=== PATIENT | male | born 1970 | race American Indian/Alaskan Native ===

== ENCOUNTER 2017-06-05 14:48 | Inpatient (IN) | payer OTHER ==
[2017-06-05] MEDS ORDERED: TYLENOL PO ONE (15:11)
--- NOTE | 2017-06-05 15:12 | Emergency Department Report ---
HPI - General Chief Complaint: Seizure Time Seen by Provider: 06/05/17 15:08 - HPI HPI: This is a 47-year-old Afro-Stateless male who presents the emergency department by EMS from home after he had a witnessed seizure. The patient doesn't history of epilepsy and his last seizure prior to today was about 6 or 7 months ago. The patient usually takes 1500 mg of Keppra twice a day and 250 mg of Depakote in the morning and 500 mg at night. However he has been out of medications for the past few days. He does not have a primary care physician. No recent travel or sick contacts at home. Currently he says he has a mild headache and just feels fatigued. ED Past Medical Hx - Past Medical History Hx Seizures: Yes - Social History Smoking Status: Never Smoker Substance Use Type: None - Medications Home Medications: Home Medications Medication Instructions Recorded Confirmed Last Taken Type Depakote Dr 50 mg PO QHS 06/05/17 06/05/[address] [DepaKOTE DR] 250 mg PO QAM 06/05/17 06/05/17 Unknown History levETIRAcetam [Keppra TAB] 1,500 mg PO BID 06/05/17 06/05/17 Unknown History ED Review of Systems ROS: Stated complaint: SEIZURE Other details as noted in HPI Comment: All other systems reviewed and negative Constitutional: denies: chills, diaphoresis Eyes: denies: eye pain, eye discharge, vision change ENT: denies: ear pain, throat pain Respiratory: denies: cough, shortness of breath, wheezing Cardiovascular: denies: chest pain, palpitations Gastrointestinal: denies: abdominal pain, nausea, diarrhea Genitourinary: denies: urgency, dysuria Musculoskeletal: denies: back pain, joint swelling, arthralgia Skin: denies: rash, lesions Neurological: headache. denies: numbness, paresthesias Physical Exam - Physical Exam Vital Signs: Vital Signs 06/05/17 15:01 Temperature 100.2 F H Pulse Rate 101 H Respiratory 16 Rate Blood Pressure 115/72 O2 Sat by Pulse 94 Oximetry Physical Exam: GENERAL: The patient is well-developed well-nourished. HEENT: Normocephalic. Atraumatic. Extraocular motions are intact. Patient has moist mucous membranes. Pupils equal reactive to light bilaterally. No nystagmus NECK: Supple. Trachea is mid line. CHEST/LUNGS: Clear to auscultation. There is no respiratory distress noted. HEART/CARDIOVASCULAR: Regular. There is no tachycardia. There is no gallop rub or murmur. ABDOMEN: Abdomen is soft, nontender. Patient has normal bowel sounds. There is no abdominal distention. SKIN: Skin is warm and dry. NEURO: The patient is fatigued but is awake, alert, and oriented. The patient is cooperative. The patient has no focal neurologic deficits. The patient has normal speech. MUSCULOSKELETAL: There is no tenderness or deformity. There is no limitation range of motion. There is no evidence of acute injury. ED Course Vital Signs 06/05/17 15:01 Temperature 100.2 F H Pulse Rate 101 H Respiratory 16 Rate Blood Pressure 115/72 O2 Sat by Pulse 94 Oximetry ED Medical Decision Making - Lab Data Result diagrams: 06/05/17 15:15 06/05/17 15:15 - EKG Data -: EKG Interpreted by Fl EKG shows normal: sinus rhythm, axis (left axis deviation), intervals, QRS complexes (LVH) Rate: normal - EKG Data When compared to previous EKG there are: previous EKG unavailable Interpretation: LVH - Radiology Data Radiology results: report reviewed CT of the head does not show any acute process including no hemorrhage, mass, shift, diffuse edema or skull fracture. - Medical Decision Making 47-year-old male presents after having a seizure at home. However the patient then had another seizure here. I was able to talk to him in between and there was no obvious focal, motor or sensory deficits and the patient was slightly postictal but was oriented at that time. Now the patient is once again postictal and it appears to be prolonged. For this reason a CT of the head was done that does not show any bleed, shift, mass or any acute process. EKG shows LVH but no ST elevation ID, or dysrhythmia. Patient has been noncompliant with his seizure medications for the past few days after he ran out of his meds. Subtherapeutic Depakote level. The patient had the second seizure just prior to being able to get the oral Depakote medication but he was covered with 1 g of Keppra. Since he has had repeated seizures and remains postictal he will be admitted to the hospital for further evaluation and treatment is been accepted for admission by the hospitalist, Dr. Pulliam. - Differential Diagnosis epilepsy, sepsis, hypoglycemia Critical Care Time: No Critical care attestation.: If time is entered above; I have spent that time in minutes in the direct care of this critically ill patient, excluding procedure time. ED Disposition Clinical Impression: Recurrent seizures, Seizure secondary to subtherapeutic anticonvulsant medication Fever Qualifiers: Fever type: unspecified Qualified Code(s): R50.9 - Fever, unspecified Epilepsy Qualifiers: Epilepsy type: unspecified Intractability: not intractable Disposition: OP ADMIT IP TO THIS HOSP Is pt being admited?: Yes Condition: Fair Time of Disposition: 19:49
[2017-06-05 15:32] LABS: Hematocrit 44.1 % (35.5-45.6); Mean Corpuscular HGB Conc 32 % (32-34); Mean Corpuscular Hemoglobin 26 pg (28-32); Mean Corpuscular Volume 83 fl (84-94); Platelet Count 130 K/mm3 (140-440); Red Blood Count 5.31 M/mm3 (3.65-5.03); Red Cell Distribution Width 13.5 % (13.2-15.2); White Blood Count 5.9 K/mm3 (4.5-11.0)
[2017-06-05 15:48] LABS: Anion Gap 18 mmol/L; Blood Urea Nitrogen 14 mg/dL (9-20); Calcium 8.7 mg/dL (8.4-10.2); Carbon Dioxide 25 mmol/L (22-30); Glucose 93 mg/dL (75-100); Potassium 4.3 mmol/L (3.6-5.0); Sodium 137 mmol/L (137-145)
[2017-06-05] MEDS ORDERED: KEPPRA 1,000 MG/NS 0.75% 100ML 1,000 MG/100 ML BAG IV ONE (16:46)
[2017-06-05] MEDS ORDERED: ATIVAN ONE (16:57)
--- NOTE | 2017-06-05 18:19 | Cat Scan Report ---
FINAL REPORT PROCEDURE: CT HEAD/BRAIN WO CON TECHNIQUE: Computerized tomography of the head was performed without contrast material. HISTORY: Seizures COMPARISON: No prior studies are available for comparison. FINDINGS: No CT evidence of intracranial mass, hemorrhage, acute territorial infarction, or hydrocephalus. The intracranial arteries are symmetric in density. No acute fracture is seen. The visualized paranasal sinuses and mastoids are aerated. IMPRESSION: No CT evidence of acute intracranial abnormality
[2017-06-05] MEDS ORDERED: TORADOL IV ONE (19:49)
--- NOTE | 2017-06-05 21:22 | History and Physical Report ---
History of Present Illness Date of examination: 06/05/17 Date of admission: 06/05/17 Chief complaint: Seizures-generalized at home. History of present illness: HPI: This is a 47-year-old Afro-Azerbaijani male who presents the emergency department by EMS from home after he had a witnessed seizure. Patient does have history of epilepsy and his last seizure prior to today was about 6 or 7 months ago. The patient usually takes 1500 mg of Keppra twice a day and 250 mg of Depakote in the morning and 500 mg at night. However he has been out of medications for the past few days. He does not have a primary care physician. No recent travel or sick contacts at home. Currently he says he has a mild headache and just feels fatigued.Had another seizure in ER and patient is postictal. Past Medical History Hx Seizures: Yes Social History Smoking Status: Never Smoker Substance Use Type: None Surg HX no Fam HX HTN - Medications Home Medications: Home Medications Medication Instructions Recorded Confirmed Last Taken Type Depakote Dr 500 mg PO QHS 06/05/17 06/05/[address] [DepaKOTE DR] 250 mg PO QAM 06/05/17 06/05/17 Unknown History levETIRAcetam [Keppra TAB] 1,500 mg PO BID 06/05/17 06/05/17 Unknown History ROS: Stated complaint: SEIZURE Other details as noted in HPI Comment: All other systems reviewed and negative Constitutional: denies: chills, diaphoresis Eyes: denies: eye pain, eye discharge, vision change ENT: denies: ear pain, throat pain Respiratory: denies: cough, shortness of breath, wheezing Cardiovascular: denies: chest pain, palpitations Gastrointestinal: denies: abdominal pain, nausea, diarrhea Genitourinary: denies: urgency, dysuria Musculoskeletal: denies: back pain, joint swelling, arthralgia Skin: denies: rash, lesions Neurological: headache. denies: numbness, paresthesias Medications and Allergies Allergies Allergy/AdvReac Type Severity Reaction Status Date / Time No Known Allergies Allergy Unverified 06/05/17 15:04 Home Medications Medication Instructions Recorded Confirmed Last Taken Type Depakote Dr 50 mg PO QHS 06/05/17 06/05/[address] [DepaKOTE DR] 250 mg PO QAM 06/05/17 06/05/17 Unknown History levETIRAcetam [Keppra TAB] 1,500 mg PO BID 06/05/17 06/05/17 Unknown History Exam - Physical Exam Narrative exam: Patient is lethargic and in no distress otherwise - Constitutional Vitals: Temp Pulse Resp BP Pulse Ox 100.2 F H 94 H 16 113/67 98 06/05/17 15:01 06/05/17 19:05 06/05/17 19:05 06/05/17 19:05 06/05/17 19:05 General appearance: Present: no acute distress, well-nourished - EENT Eyes: Present: PERRL ENT: hearing intact, clear oral mucosa - Neck Neck: Present: supple, normal ROM - Respiratory Respiratory effort: normal Respiratory: bilateral: CTA - Cardiovascular Heart rate: 94 Rhythm: regular Heart Sounds: Present: S1 & S2. Absent: rub, click - Extremities Extremities: pulses intact, pulses symmetrical, No edema Peripheral Pulses: within normal limits - Abdominal General gastrointestinal: Present: soft, non-tender, non-distended, normal bowel sounds Male genitourinary: Present: normal - Rectal Rectal Exam: deferred - Integumentary Integumentary: Present: clear, warm, dry - Musculoskeletal Musculoskeletal: gait normal, strength equal bilaterally - Psychiatric Psychiatric: appropriate mood/affect, intact judgment & insight - Neurologic Neurologic: CNII-XII intact, moves all extremities - Additional findings Additional findings: Lethargic and altered sensorium - Allied Health Allied health notes reviewed: nursing, case management Results - Labs CBC & Chem 7: 06/05/17 15:15 06/05/17 15:15 Labs: Laboratory Last Values WBC 5.9 K/mm3 (4.5-11.0) 06/05/17 15:15 RBC 5.31 M/mm3 (3.65-5.03) H 06/05/17 15:15 Hgb 14.0 gm/dl (11.8-15.2) 06/05/17 15:15 Hct 44.1 % (35.5-45.6) 06/05/17 15:15 MCV 83 fl (84-94) L 06/05/17 15:15 MCH 26 pg (28-32) L 06/05/17 15:15 MCHC 32 % (32-34) 06/05/17 15:15 RDW 13.5 % (13.2-15.2) 06/05/17 15:15 Plt Count 130 K/mm3 (140-440) L 06/05/17 15:15 Carbon Dioxide 25 mmol/L (22-30) 06/05/17 15:15 BUN 14 mg/dL (9-20) 06/05/17 15:15 Creatinine 1.0 mg/dL (0.8-1.5) 06/05/17 15:15 Estimated GFR > 60 ml/min 06/05/17 15:15 BUN/Creatinine Ratio 14.00 % 06/05/17 15:15 Glucose 93 mg/dL (75-100) 06/05/17 15:15 Calcium 8.7 mg/dL (8.4-10.2) 06/05/17 15:15 Total Creatine Kinase 156 units/L (55-170) 06/05/17 15:15 Valproic Acid 9.5 ug/mL (50-100) L 06/05/17 15:15 - Imaging and Cardiology EKG: report reviewed (94/min.LVH by voltage criteria) Assessment and Plan Advance Directives: Yes (Full code) VTE prophylaxis?: Chemical Plan of care discussed with patient/family: Yes - Patient Problems (1) Seizure secondary to subtherapeutic anticonvulsant medication Current Visit: Yes Status: Acute Plan to address problem: Patient noncompliant and not taking medicine for 5 to 7 days. Resume Keppra at 1500 bid in addition to IV keppra and stop Iv keppra after morning dose of 06/06/17. Also resume Depakote 500mg at night time and 250 in am Patient to be counselled about non compliance (2) Noncompliance Current Visit: Yes Status: Chronic Plan to address problem: Patient to be counselled about non compliance once he is more alert and oriented. (3) DVT prophylaxis Current Visit: Yes Status: Acute Plan to address problem: On Lovenox 40 mg sq qd
--- NOTE | 2017-06-06 09:01 | Discharge Summary ---
Providers - Providers Date of Admission: 06/05/17 23:20 Attending physician: TIFFANIE BORREGO MD Primary care physician: [employer] Hospitalization Condition: Fair Hospital course: This is a 47-year-old Afro-Greek male who presents the emergency department by EMS from home after he had a witnessed seizure. Patient does have history of epilepsy and his last seizure prior to today was about 6 or 7 months ago. The patient usually takes 1500 mg of Keppra twice a day and 250 mg of Depakote in the morning and 500 mg at night. However he has been out of medications for the past few days. He does not have a primary care physician. No recent travel or sick contacts at home. Currently he says he has a mild headache and just feels fatigued.Had another seizure in ER and patient is postictal. (1) Seizure secondary to subtherapeutic anticonvulsant medication Current Visit: Yes Status: Acute Plan to address problem: Patient noncompliant and not taking medicine for 5 to 7 days. Resume Keppra at 1500 bid in addition to IV keppra and stop Iv keppra after morning dose of 06/06/17. Also resume Depakote 500mg at night time and 250 in am Patient to be counselled about non compliance (2) Noncompliance Current Visit: Yes Status: Chronic Plan to address problem: Patient to be counselled about non compliance once he is more alert and oriented. (3) DVT prophylaxis Current Visit: Yes Status: Acute Plan to address problem: On Lovenox 40 mg sq qd Disposition: DC-01 TO HOME OR SELFCARE Time spent for discharge: 33 minutes Core Measure Documentation - Palliative Care Palliative Care/ Comfort Measures: Not Applicable - Core Measures Any of the following diagnoses?: none Exam - Constitutional Vitals: Temp Pulse Resp BP Pulse Ox 98.4 F 100 H 18 118/68 98 06/06/17 05:25 06/06/17 05:25 06/06/17 05:25 06/06/17 05:25 06/06/17 05:25 General appearance: Present: no acute distress, well-nourished - EENT Eyes: Present: PERRL ENT: hearing intact, clear oral mucosa - Neck Neck: Present: supple, normal ROM - Respiratory Respiratory effort: normal Respiratory: bilateral: CTA - Cardiovascular Heart Sounds: Present: S1 & S2. Absent: rub, click - Extremities Extremities: pulses symmetrical, No edema Peripheral Pulses: within normal limits - Abdominal General gastrointestinal: Present: soft, non-tender, non-distended, normal bowel sounds Male genitourinary: Present: normal - Integumentary Integumentary: Present: clear, warm, dry - Musculoskeletal Musculoskeletal: gait normal, strength equal bilaterally - Psychiatric Psychiatric: appropriate mood/affect, intact judgment & insight - Neurologic Neurologic: CNII-XII intact, moves all extremities Plan Follow up with: PRIMARY CAREMD [Primary Care Provider] - 3-5 Days LUZ ROTH MD [Staff Physician] - 7 Days Prescriptions: Divalproex [Dwain Diez] 500 mg PO QHS #30 tablet Divalproex [Dwain Diez] 250 mg PO QAM #30 tablet levETIRAcetam [Keppra TAB] 1,500 mg PO BID #180 tablet
[2017-06-06] MEDS ORDERED: NON-FORMULARY (Levetiracetam [Keppra Tab] 1,500 MG) PO SCH (10:00)
[2017-06-06] MEDS ORDERED: KEPPRA PO SCH (10:00)
[2017-06-06 10:29] LABS: Anion Gap 17 mmol/L; Blood Urea Nitrogen 15 mg/dL (9-20); Calcium 8.2 mg/dL (8.4-10.2); Carbon Dioxide 27 mmol/L (22-30); Glucose 86 mg/dL (75-100); Potassium 3.8 mmol/L (3.6-5.0); Sodium 144 mmol/L (137-145)
[2017-06-06 12:50] VITALS: BP 108/63
--- NOTE | 2017-06-06 16:00 | Admit Criteria Form ---
Admission Criteria Documentation: SEIZURE Clinical Indications for Admission to Inpatient Care (Place 'X' for any and all applicable criteria): Admission is indicated for seizure and 1 or more of the following (1)(2)(3)(4)(5 )(6) [X ]I. Inpatient admission required rather than observation care (Also use Seizure: Observation Care Criteria as appropriate) because of 1 or more of the following: [ ]1) Altered mental status that is severe or persistent [ ]2) New focal neurologic deficit that is severe or persistent [ ]3) Metabolic disorder (eg, hypoglycemia, hyponatremia) that is severe or persistent [X ]4) Recurrent seizure [ ]5) Outpatient antiseizure regimen cannot be established (eg , patient cannot tolerate medication, initiation requires inpatient care) [ ]6) Need for ongoing intravenous infusion of anti-seizure medication [ ]7) Cerebral bleeding, hydrocephalus, or vasospasm monitoring [ ]8) Increased intracranial pressure or cerebral edema monitoring [ ]9) Other conditions, treatment or monitoring requiring inpatient admission [ ]II. Status epilepticus [A] or repetitive seizures not controlled with emergent treatment (6)(8) [ ]III. Brain disorder (eg, tumor, edema, and hydrocephalus) that requiring monitoring or intervention available only at inpatient level of care. [ ]IV. Brain insult (eg, severe trauma, stroke, drug toxicity, or withdrawal) that requires monitoring or intervention available only at inpatient level of care (10)(11) [ ]V. Cardiac arrhythmias of immediate concern Extended stay beyond goal length of stay may be needed for (22) [ ]a) Complications of status epilepticus [ ]b) Refractory status epilepticus [ ]c) Etiology-specific therapy for conditions such as [employer] infection, head injury,eclampsia, severe metabolic abnormalities, and brain tumor [ ]d) Residual neurologic damage, [ ]e) Initiation of significant change to anticonvulsant treatment [ ]f) Older patients (65 years or older) [ ]g) Patient requiring intubation (eg, to protect airway) The original [employer] content created by [employer] has been revised. The portions of the content which have been revised are identified through the use of italic text or in bold, and [employer] has neither reviewed nor approved the modified material. All other unmodified content is copyright [employer]. Please see references footnoted in the original [facility] edition 2017 Admission Criteria Met: Yes
[2017-06-06] MEDS ORDERED: DEPAKOTE 500 MG PO SCH (22:00)
[2017-06-06] MEDS ORDERED: DEPAKOTE PO SCH (22:00)
== END 2017-06-06 18:11 | disposition home or self-care (01) | DRG 101 ==
LOC: ED 14:48 → 4A 23:20
PROVIDERS: ADMIT Internal Medicine; ATTEND Internal Medicine
DX: G40.909 Epilepsy, unspecified, not intractable, without status epilepticus (principal); Z91.14 Patient's other noncompliance with medication regimen; Z71.89 Other specified counseling
CPT/HCPCS: 36415; 70450; 80048; 80164; 82550; 83735; 85027; 93005; 93010; 96365; 96375; J1885; J1953; J2060

== ENCOUNTER 2017-07-24 22:24 | Emergency (ER) | payer SELFPAY ==
[2017-07-24 23:04] LABS: Basophils % (Auto) 0.3 % (0.0-1.8); Eosinophils % (Auto) 1.9 % (0.0-4.3); Hemoglobin 14.1 gm/dl (11.8-15.2); Mean Corpuscular HGB Conc 31 % (32-34); Mean Corpuscular Hemoglobin 27 pg (28-32); Mean Corpuscular Volume 85 fl (84-94); Platelet Count 182 K/mm3 (140-440); Red Cell Distribution Width 15.2 % (13.2-15.2); White Blood Count 4.4 K/mm3 (4.5-11.0)
[2017-07-24 23:22] LABS: Anion Gap 21 mmol/L; Blood Urea Nitrogen 15 mg/dL (9-20); Calcium 8.4 mg/dL (8.4-10.2); Carbon Dioxide 21 mmol/L (22-30); Chloride 102.7 mmol/L (98-107); Glucose 133 mg/dL (75-100); Potassium 4.1 mmol/L (3.6-5.0); Sodium 141 mmol/L (137-145)
[2017-07-25] MEDS ORDERED: KEPPRA 1,000 MG/NS 0.75% 100ML 1,000 MG/100 ML BAG IV ONE (02:00)
[2017-07-25 02:07] VITALS: BP 167/79
--- NOTE | 2017-07-25 02:28 | Emergency Department Report ---
HPI - General Chief Complaint: Seizure Time Seen by Provider: 07/25/17 01:59 - HPI HPI: 47-year-old male presents to the emergency department by EMS from home after he had a witnessed seizure about 9:30 PM this evening. He has a history of seizure disorder and a history of medication noncompliance. He says that he has been out of his medication the past 2 days. He usually takes Keppra 1500 mg twice daily and Depakote at 250 mg in the morning and 500 mg in the evening. At this time he just complains of feeling "a little sore." He denies any drug or alcohol abuse. He did not receive anything for his symptoms prior to presentation. No recent travel or sick contacts at home. He does not have a primary care physician. ED Past Medical Hx - Past Medical History Previous Medical History?: Yes Hx Congestive Heart Failure: No Hx Diabetes: No Hx Seizures: Yes Hx Asthma: No Hx COPD: No - Surgical History Past Surgical History?: No - Social History Smoking Status: Never Smoker Substance Use Type: None - Medications Home Medications: Home Medications Medication Instructions Recorded Confirmed Last Taken Type Divalproex Dr [Kartikakote Dr] 250 mg PO QAM #30 tablet 07/25/[address] [Depakote Dr] 500 mg PO QHS #30 tablet 07/25/17 Unknown Rx levETIRAcetam [Keppra TAB] 1,500 mg PO BID #180 tablet 07/25/17 Unknown Rx ED Review of Systems ROS: Stated complaint: SEIZURE Other details as noted in HPI Comment: All other systems reviewed and negative Constitutional: denies: chills, fever Eyes: denies: eye pain, eye discharge, vision change ENT: denies: ear pain, throat pain Respiratory: denies: cough, shortness of breath, wheezing Cardiovascular: denies: chest pain, palpitations Gastrointestinal: denies: abdominal pain, nausea, diarrhea Genitourinary: denies: urgency, dysuria Musculoskeletal: denies: back pain, joint swelling, arthralgia Skin: denies: rash, lesions Neurological: other (seizure). denies: headache, weakness, paresthesias Physical Exam - Physical Exam Vital Signs: Vital Signs 07/24/17 07/25/17 22:38 02:03 Temperature 98 F Pulse Rate 103 H 71 Respiratory 16 18 Rate Blood Pressure 120/82 Blood Pressure 167/79 [Left] O2 Sat by Pulse 96 98 Oximetry Physical Exam: GENERAL: The patient is well-developed well-nourished. HENT: Normocephalic. Atraumatic. Patient has moist mucous membranes. EYES: Extraocular motions are intact. Pupils equal reactive to light bilaterally. No nystagmus. NECK: Supple. Trachea is midline. CHEST/LUNGS: Clear to auscultation. There is no respiratory distress noted. HEART/CARDIOVASCULAR: Regular. There is no tachycardia. There is no gallop rub or murmur. ABDOMEN: Abdomen is soft, nontender. Patient has normal bowel sounds. There is no abdominal distention. SKIN: Skin is warm and dry. NEURO: The patient is awake, alert, and oriented. The patient is cooperative. The patient has no focal neurologic deficits. The patient has normal speech. Cranial nerves II through XII grossly intact. MUSCULOSKELETAL: There is no tenderness or deformity. There is no limitation range of motion. There is no evidence of acute injury. ED Course Vital Signs 07/24/17 07/25/17 22:38 02:03 Temperature 98 F Pulse Rate 103 H 71 Respiratory 16 18 Rate Blood Pressure 120/82 Blood Pressure 167/79 [Left] O2 Sat by Pulse 96 98 Oximetry ED Medical Decision Making - Lab Data Result diagrams: 07/24/17 22:51 07/24/17 22:51 - EKG Data -: EKG Interpreted by Me EKG shows normal: sinus rhythm, axis, intervals, QRS complexes, ST-T waves ( early repolarization) Rate: normal - EKG Data When compared to previous EKG there are: no significant change Interpretation: unchanged when compared t (06/05/17) - Medical Decision Making 47-year-old male presents with one witnessed seizure but is currently awake and alert and acting appropriate. His EKG does not show any signs of ST elevation DE. Labs are mostly unremarkable other than showing that he is subtherapeutic on the Depakote. He was given a loading dose of both Keppra and Depakote. Vital signs stable throughout his ED course including being afebrile. The patient has a history of epilepsy and a recent for the seizures, with medication noncompliance and subtherapeutic levels, I did not feel that CT imaging of the head was necessary at this time. There is been no further seizure-like activity and he has been in the emergency department and reevaluated over greater than 4 hours. He appears safe for discharge home at this time. He understands that he cannot and should not be driving. He was given multiple referrals for primary care clinics. He will return to the ER with any worsening of symptoms or any acute distress. - Differential Diagnosis epilepsy, hypoglycemia, TIA, medication noncompliance Critical Care Time: No Critical care attestation.: If time is entered above; I have spent that time in minutes in the direct care of this critically ill patient, excluding procedure time. ED Disposition Clinical Impression: Seizure secondary to subtherapeutic anticonvulsant medication Hypertension Qualifiers: Hypertension type: essential hypertension Qualified Code(s): I10 - Essential ( primary) hypertension Disposition: TO HOME OR SELFCARE Is pt being admited?: No Condition: Stable Instructions: Epilepsy (ED), Hypertension (ED) Additional Instructions: Please follow up with a primary care physician or clinic to establish care. Take your seizure medications as prescribed. Return to the emergency Department with any worsening of your symptoms, recurrent seizures, or any acute distress. Prescriptions: Divalproex Dr [Dwain Diez] 500 mg PO QHS #30 tablet Divalproex [Dwain Diez] 250 mg PO QAM #30 tablet levETIRAcetam [Keppra TAB] 1,500 mg PO BID #180 tablet Referrals: PRIMARY CARE, [Primary Care Provider] - 3-5 Days [facility] [Outside] - 3-5 Days [facility] [Outside] - 3-5 Days [facility] [Outside] - 3-5 Days [facility] [Outside] - 3-5 Days [facility] [Outside] - 3-5 Days Time of Disposition: 02:55
== END 2017-07-25 03:44 | disposition home or self-care (01) ==
LOC: ED 22:24
DX: R56.9 Unspecified convulsions (principal); I10 Essential (primary) hypertension
CPT/HCPCS: 36415; 80048; 80164; 85025; 93005; 93010; 96365; 99284; J1953

== ENCOUNTER 2017-07-29 05:19 | Emergency (ER) | payer SELFPAY ==
[2017-07-29] MEDS ORDERED: KEPPRA 500 MG in D5W 100 ML IV ONE (07:23)
[2017-07-29] MEDS ORDERED: KEPPRA 1,000 MG/NS 0.75% 100ML 1,000 MG/100 ML BAG IV ONE ×2 (07:28→07:32)
--- NOTE | 2017-07-29 07:37 | Emergency Department Report ---
ED Seizure HPI - General Chief Complaint: Seizure Stated Complaint: CONVULSIONS Time Seen by Provider: 07/29/17 06:56 Source: patient, EMS Mode of arrival: Stretcher Limitations: No Limitations - History of Present Illness Initial Comments: 47-year-old male who presents emergency Department with complaint of seizure. Patient has known seizure disorder and is not taking his meds for a couple days. He has a prescription but has not been able get his meds filled. He bit his tongue. Denies any other complaints at this point. No fevers chills nausea vomiting. MD Complaint: seizure Description of Episode: tonic-clonic movement Seizure History: known seizure disorder, history of non-compliance Place: home Possible Precipitating Event: none Associated Symptoms: denies: chest pain, confusion, cough, diaphoresis, fever/ chills - Related Data Previous Rx's Medication Instructions Recorded Last Taken Type Divalproex Dr [Dwain Diez] 250 mg PO QAM #30 tablet 07/25/[address] [Dwain Diez] 500 mg PO QHS #30 tablet 07/25/17 Unknown Rx levETIRAcetam [Keppra TAB] 1,500 mg PO BID #180 tablet 07/25/17 Unknown Rx Allergies Allergy/AdvReac Type Severity Reaction Status Date / Time No Known Allergies Allergy Unverified 06/05/17 15:04 ED Review of Systems ROS: Stated complaint: CONVULSIONS Other details as noted in HPI Comment: All other systems reviewed and negative Constitutional: denies: chills, fever Eyes: denies: eye pain, vision change ENT: denies: ear pain, throat pain Respiratory: denies: cough, shortness of breath, wheezing Cardiovascular: denies: chest pain, palpitations, dyspnea on exertion Endocrine: no symptoms reported Gastrointestinal: denies: abdominal pain, nausea, diarrhea Genitourinary: denies: urgency, dysuria Musculoskeletal: denies: back pain, joint swelling, arthralgia Skin: denies: rash, lesions Neurological: denies: headache, weakness, paresthesias, confusion, vertigo Psychiatric: denies: anxiety, depression Hematological/Lymphatic: denies: easy bleeding, easy bruising ED Past Medical Hx - Past Medical History Previous Medical History?: Yes Hx Congestive Heart Failure: No Hx Diabetes: No Hx Seizures: Yes Hx Asthma: No Hx COPD: No - Surgical History Past Surgical History?: No - Social History Smoking Status: Never Smoker Substance Use Type: None - Medications Home Medications: Home Medications Medication Instructions Recorded Confirmed Last Taken Type Divalproex Dr [Depakote Dr] 250 mg PO QAM #30 tablet 07/25/[address] [Depakote Dr] 500 mg PO QHS #30 tablet 07/25/17 Unknown Rx levETIRAcetam [Keppra TAB] 1,500 mg PO BID #180 tablet 07/25/17 Unknown Rx ED Physical Exam - General Limitations: No Limitations General appearance: alert, in no apparent distress - Head Head exam: Present: normocephalic, other - Eye Eye exam: Present: normal appearance - ENT ENT exam: Present: mucous membranes moist, other (significant tongue laceration on the left, not actively bleeding) - Neck Neck exam: Present: normal inspection - Respiratory Respiratory exam: Present: normal lung sounds bilaterally. Absent: respiratory distress, wheezes, rales - Cardiovascular Cardiovascular Exam: Present: regular rate, normal rhythm, normal heart sounds. Absent: systolic murmur, diastolic murmur, rubs, gallop - GI/Abdominal GI/Abdominal exam: Present: soft, normal bowel sounds - Rectal Rectal exam: Present: deferred - Extremities Exam Extremities exam: Present: normal inspection - Back Exam Back exam: Present: normal inspection - Neurological Exam Neurological exam: Present: alert, oriented X3 - Psychiatric Psychiatric exam: Present: normal affect, normal mood - Skin Skin exam: Present: warm, dry, intact, normal color. Absent: rash ED Course Vital Signs 07/29/17 05:36 Temperature 98.9 F Pulse Rate 88 Respiratory 16 Rate Blood Pressure 132/86 [Right] O2 Sat by Pulse 98 Oximetry ED Medical Decision Making - Lab Data Result diagrams: 07/29/17 07:56 07/29/17 07:56 Laboratory Results - last 24 hr 07/29/17 07/29/17 07:56 07:56 WBC 4.4 L RBC 5.09 H Hgb 14.0 Hct 42.7 MCV 84 MCH 27 L MCHC 33 RDW 14.8 Plt Count 143 Lymph % (Auto) 28.4 [place] % (Auto) 9.0 H Eos % (Auto) 0.5 Baso % (Auto) 0.5 Lymph # 1.3 [place] # 0.4 Eos # 0.0 Baso # 0.0 Seg Neutrophils % 61.6 Seg Neutrophils # 2.7 Sodium 142 Potassium 5.1 H D Chloride 104.0 Carbon Dioxide 26 Anion Gap 17 BUN 17 Creatinine 1.0 Estimated GFR > 60 BUN/Creatinine Ratio 17 Glucose 89 Calcium 8.7 Total Bilirubin 0.40 AST 25 ALT 23 Alkaline Phosphatase 40 Total Protein 6.8 Albumin 4.4 Albumin/Globulin Ratio 1.8 - Medical Decision Making 47-year-old male with known seizure disorder off meds. Plan to check labs and treat with Ai planned discharge home. Discussed with patient. Patient will fill his prescriptions . Patient is discharged home. Portions of this chart were dictated with dictation software. There may be dictation errors contained within this note. Critical care attestation.: If time is entered above; I have spent that time in minutes in the direct care of this critically ill patient, excluding procedure time. ED Disposition Clinical Impression: Recurrent seizures Disposition: DC-01 TO HOME OR SELFCARE Is pt being admited?: No Condition: Stable Instructions: Recurrent Seizures Adult (ED) Referrals: PRIMARY CARE, [Primary Care Provider] - 3-5 Days
[2017-07-29 08:34] LABS: Basophils % (Auto) 0.5 % (0.0-1.8); Eosinophils % (Auto) 0.5 % (0.0-4.3); Hematocrit 42.7 % (35.5-45.6); Mean Corpuscular HGB Conc 33 % (32-34); Mean Corpuscular Hemoglobin 27 pg (28-32); Mean Corpuscular Volume 84 fl (84-94); Platelet Count 143 K/mm3 (140-440); Red Blood Count 5.09 M/mm3 (3.65-5.03); Red Cell Distribution Width 14.8 % (13.2-15.2); White Blood Count 4.4 K/mm3 (4.5-11.0)
[2017-07-29 09:04] LABS: Alanine Aminotransferase 23 units/L (7-56); Albumin 4.4 g/dL (3.9-5); Albumin/Globulin Ratio 1.8 %; Alkaline Phosphatase 40 units/L (35-129); Anion Gap 17 mmol/L; BUN/Creatinine Ratio 17; Blood Urea Nitrogen 17 mg/dL (9-20); Calcium 8.7 mg/dL (8.4-10.2); Carbon Dioxide 26 mmol/L (22-30); Glucose 89 mg/dL (75-100); Potassium 5.1 mmol/L (3.6-5.0); Sodium 142 mmol/L (137-145); Total Protein 6.8 g/dL (6.3-8.2)
[2017-07-29 10:37] VITALS: BP 141/89
== END 2017-07-29 10:30 | disposition home or self-care (01) ==
LOC: ED 05:19
DX: G40.909 Epilepsy, unspecified, not intractable, without status epilepticus (principal)
CPT/HCPCS: 36415; 80053; 82962; 85025; 96365; 99284; J1953

== ENCOUNTER 2017-08-12 04:36 | Emergency (ER) | payer SELFPAY ==
[2017-08-12] MEDS ORDERED: KEPPRA 1,000 MG/NS 0.75% 100ML 1,000 MG/100 ML BAG IV ONE (07:06)
[2017-08-12 07:57] LABS: Hemoglobin 13.9 gm/dl (11.8-15.2); Mean Corpuscular HGB Conc 32 % (32-34); Mean Corpuscular Hemoglobin 27 pg (28-32); Mean Corpuscular Volume 85 fl (84-94); Platelet Count 158 K/mm3 (140-440); Red Blood Count 5.07 M/mm3 (3.65-5.03); Red Cell Distribution Width 14.4 % (13.2-15.2); White Blood Count 3.9 K/mm3 (4.5-11.0)
[2017-08-12 08:07] VITALS: BP 126/83
[2017-08-12 08:10] LABS: Anion Gap 17 mmol/L; BUN/Creatinine Ratio 12; Blood Urea Nitrogen 11 mg/dL (9-20); Calcium 8.5 mg/dL (8.4-10.2); Carbon Dioxide 28 mmol/L (22-30); Chloride 101.7 mmol/L (98-107); Glucose 97 mg/dL (75-100); Potassium 4.4 mmol/L (3.6-5.0); Sodium 142 mmol/L (137-145)
[2017-08-12 08:54] LABS: Basophils % (Manual) 0 % (0.0-1.8); Blastocytes % (Manual) 0 %
[2017-08-12 08:57] LABS: Diff Status Complete; Ovalocytes 1+; Stomatocytes Rare
--- NOTE | 2017-08-12 12:11 | Emergency Department Report ---
ED Seizure HPI - General Chief Complaint: Seizure Stated Complaint: SEIZURE Time Seen by Provider: 08/12/17 07:05 Source: patient, EMS Mode of arrival: Stretcher Limitations: No Limitations - History of Present Illness Initial Comments: The patient is status post a generalized seizure this morning. Apparently it lasted about 1 minute. The patient reports no injuries. He states he is back to his baseline. He admits he is not compliant with all his seizure medicine to include Depakote and Keppra. He does not have a physician he states. He has no submental complaint. MD Complaint: seizure Description of Episode: tonic-clonic movement Witnessed:: Yes Trauma: No Place: home Possible Precipitating Event: none Associated Symptoms: denies other symptoms - Related Data Previous Rx's Medication Instructions Recorded Last Taken Type Divalproex Dr [Depakote Dr] 250 mg PO QAM #30 tablet 08/12/[address] [Depakote Dr] 500 mg PO QHS #30 tablet 08/12/17 Unknown Rx levETIRAcetam [Keppra] 500 mg PO BID #60 tablet 08/12/17 Unknown Rx Allergies Allergy/AdvReac Type Severity Reaction Status Date / Time No Known Allergies Allergy Verified 08/12/17 05:01 ED Review of Systems ROS: Stated complaint: SEIZURE Other details as noted in HPI Constitutional: denies: chills, fever Eyes: denies: eye pain, eye discharge, vision change ENT: denies: ear pain, throat pain Respiratory: denies: cough, shortness of breath, wheezing Cardiovascular: denies: chest pain, palpitations Endocrine: no symptoms reported Gastrointestinal: denies: abdominal pain, nausea, diarrhea Genitourinary: denies: urgency, dysuria Musculoskeletal: denies: back pain, joint swelling, arthralgia Skin: denies: rash, lesions Neurological: as per HPI. denies: headache, weakness, paresthesias Psychiatric: denies: anxiety, depression Hematological/Lymphatic: denies: easy bleeding, easy bruising ED Past Medical Hx - Past Medical History Previous Medical History?: Yes Hx Congestive Heart Failure: No Hx Diabetes: No Hx Seizures: Yes Hx Asthma: No Hx COPD: No - Surgical History Past Surgical History?: No - Social History Smoking Status: Never Smoker Substance Use Type: Alcohol - Medications Home Medications: Home Medications Medication Instructions Recorded Confirmed Last Taken Type Divalproex Dr [Depakote Dr] 250 mg PO QAM #30 tablet 08/12/[address] [Depakote Dr] 500 mg PO QHS #30 tablet 08/12/17 Unknown Rx levETIRAcetam [Keppra] 500 mg PO BID #60 tablet 08/12/17 Unknown Rx ED Physical Exam - General Limitations: No Limitations General appearance: alert, in no apparent distress - Head Head exam: Present: atraumatic, normocephalic - Eye Eye exam: Present: normal appearance, PERRL, EOMI. Absent: scleral icterus - ENT ENT exam: Present: mucous membranes moist - Neck Neck exam: Present: normal inspection. Absent: tenderness, meningismus - Respiratory Respiratory exam: Present: normal lung sounds bilaterally. Absent: respiratory distress - Cardiovascular Cardiovascular Exam: Present: regular rate, normal rhythm. Absent: systolic murmur, diastolic murmur, rubs, gallop - GI/Abdominal GI/Abdominal exam: Present: soft, normal bowel sounds. Absent: distended, tenderness, guarding, rebound - Rectal Rectal exam: Present: deferred - Extremities Exam Extremities exam: Present: normal inspection - Back Exam Back exam: Present: normal inspection - Neurological Exam Neurological exam: Present: alert, oriented X3, CN II-XII intact. Absent: motor sensory deficit - Psychiatric Psychiatric exam: Present: normal affect, normal mood - Skin Skin exam: Present: warm, dry, intact, normal color. Absent: rash ED Course Vital Signs 08/12/17 08/12/17 05:17 08:04 Temperature 98.7 F 98.8 F Pulse Rate 101 H 80 Respiratory 21 13 Rate Blood Pressure 130/72 126/83 [Right] O2 Sat by Pulse 98 100 Oximetry - Reevaluation(s) Reevaluation #1: Given IV Keppra and observed. No further seizure activity. Medications will be reviewed and the patient referred for follow-up. 08/12/17 12:10 ED Medical Decision Making - Lab Data Result diagrams: 08/12/17 07:38 08/12/17 07:38 Laboratory Results - last 24 hr 08/12/17 08/12/17 08/12/17 05:23 07:38 07:38 WBC 3.9 L RBC 5.07 H Hgb 13.9 Hct 43.0 MCV 85 MCH 27 L MCHC 32 RDW 14.4 Plt Count 158 Add Manual Diff Complete Total Counted 100 Seg Neuts % (Manual) 74.0 H Band Neutrophils % 0 Lymphocytes % (Manual) 21.0 Reactive Lymphs % (Man) 0 Monocytes % (Manual) 3.0 Eosinophils % (Manual) 2.0 Basophils % (Manual) 0 Metamyelocytes % 0 Myelocytes % 0 Promyelocytes % 0 Blast Cells % 0 Nucleated RBC % Not Reportable Seg Neutrophils # Man 2.9 Band Neutrophils # 0.0 Lymphocytes # (Manual) 0.8 L Abs React Lymphs (Man) 0.0 Monocytes # (Manual) 0.1 Eosinophils # (Manual) 0.1 Basophils # (Manual) 0.0 Metamyelocytes # 0.0 Myelocytes # 0.0 Promyelocytes # 0.0 Blast Cells # 0.0 WBC Morphology Not Reportable Hypersegmented Neuts Not Reportable Hyposegmented Neuts Not Reportable Hypogranular Neuts Not Reportable Smudge Cells Not Reportable Toxic Granulation Not Reportable Toxic Vacuolation Not Reportable Dohle Bodies Not Reportable Pelger-Huet Anomaly Not Reportable Jerome Rods Not Reportable Platelet Estimate Appears normal Clumped Platelets Not Reportable Plt Clumps, EDTA Not Reportable Large Platelets Not Reportable Giant Platelets Not Reportable Platelet Satelliting Not Reportable Plt Morphology Comment Not Reportable RBC Morphology Not Reportable Dimorphic RBCs Not Reportable Polychromasia Not Reportable Hypochromasia Not Reportable Poikilocytosis Not Reportable Anisocytosis Not Reportable Microcytosis Not Reportable Macrocytosis Not Reportable Spherocytes Not Reportable Pappenheimer Bodies Not Reportable Sickle Cells Not Reportable Target Cells Not Reportable Tear Drop Cells Not Reportable Ovalocytes 1+ Stomatocytes Rare Helmet Cells Not Reportable [place] Bodies Not Reportable [place] Rings Not Reportable [place] Cells Not Reportable Bite Cells Not Reportable Crenated Cell Not Reportable Elliptocytes Not Reportable Acanthocytes (Spur) Not Reportable Rouleaux Not Reportable Hemoglobin C Crystals Not Reportable Schistocytes Not Reportable Malaria parasites Not Reportable Ilir Bodies Not Reportable Hem Pathologist Commnt No Sodium 142 Potassium 4.4 Chloride 101.7 Carbon Dioxide 28 Anion Gap 17 BUN 11 Creatinine 0.9 Estimated GFR > 60 BUN/Creatinine Ratio 12 Glucose 97 POC Glucose 76 Calcium 8.5 Magnesium 2.30 Valproic Acid 08/12/17 07:38 WBC RBC Hgb Hct MCV MCH MCHC RDW Plt Count Add Manual Diff Total Counted Seg Neuts % (Manual) Band Neutrophils % Lymphocytes % (Manual) Reactive Lymphs % (Man) Monocytes % (Manual) Eosinophils % (Manual) Basophils % (Manual) Metamyelocytes % Myelocytes % Promyelocytes % Blast Cells % Nucleated RBC % Seg Neutrophils # Man Band Neutrophils # Lymphocytes # (Manual) Abs React Lymphs (Man) Monocytes # (Manual) Eosinophils # (Manual) Basophils # (Manual) Metamyelocytes # Myelocytes # Promyelocytes # Blast Cells # WBC Morphology Hypersegmented Neuts Hyposegmented Neuts Hypogranular Neuts Smudge Cells Toxic Granulation Toxic Vacuolation Dohle Bodies Pelger-Huet Anomaly Jerome Rods Platelet Estimate Clumped Platelets Plt Clumps, EDTA Large Platelets Giant Platelets Platelet Satelliting Plt Morphology Comment RBC Morphology Dimorphic RBCs Polychromasia Hypochromasia Poikilocytosis Anisocytosis Microcytosis Macrocytosis Spherocytes Pappenheimer Bodies Sickle Cells Target Cells Tear Drop Cells Ovalocytes Stomatocytes Helmet Cells [place] Bodies [place] Rings [place] Cells Bite Cells Crenated Cell Elliptocytes Acanthocytes (Spur) Rouleaux Hemoglobin C Crystals Schistocytes Malaria parasites Ilir Bodies Hem Pathologist Commnt Sodium Potassium Chloride Carbon Dioxide Anion Gap BUN Creatinine Estimated GFR BUN/Creatinine Ratio Glucose POC Glucose Calcium Magnesium Valproic Acid < 2.8 L Critical care attestation.: If time is entered above; I have spent that time in minutes in the direct care of this critically ill patient, excluding procedure time. ED Disposition Clinical Impression: Seizure, History of seizure disorder Disposition: DC-01 TO HOME OR SELFCARE Is pt being admited?: No Does the pt Need Aspirin: No Condition: Stable Instructions: Recurrent Seizures Adult (ED) Additional Instructions: Do not drive or operate heavy machinery until you are cleared by a neurologist or other qualified physician. See referrals. Rx as directed. Prescriptions: Divalproex Dr [Depakote Dr] 500 mg PO QHS #[address] [Depakote Dr] 250 mg PO QAM #30 tablet levETIRAcetam [Keppra] 500 mg PO BID #60 tablet Referrals: [facility] [Provider Group] - 3-5 Days KARLIE GAUTAM MD [Staff Physician] - 3-5 Days PRIMARY CARE, [Primary Care Provider] - 3-5 Days Time of Disposition: 13:38
== END 2017-08-12 12:50 | disposition home or self-care (01) ==
LOC: ED 04:36
DX: G40.909 Epilepsy, unspecified, not intractable, without status epilepticus (principal)
CPT/HCPCS: 36415; 80048; 80164; 82962; 83735; 85007; 85025; 96365; 99284; J1953

== ENCOUNTER 2018-01-23 08:46 | Emergency (ER) | payer OTHER ==
[2018-01-23] MEDS ORDERED: KEPPRA 1,000 MG/NS 0.75% 100ML 1,000 MG/100 ML BAG IV ONE (09:42)
[2018-01-23] MEDS ORDERED: TORADOL IV ONE (09:47)
[2018-01-23] MEDS ORDERED: NACL 0.9% 500 ML IR ONE (09:54)
--- NOTE | 2018-01-23 09:55 | Emergency Department Report ---
ED Seizure HPI - General Chief Complaint: Seizure Stated Complaint: SEIZURE Time Seen by Provider: 01/23/18 09:43 Source: patient, EMS Mode of arrival: Stretcher Limitations: No Limitations - History of Present Illness Initial Comments: 49 yo male with a past medical history seizures presents to the hospital status post seizure. Patient was found post ictal on a sidewalk. Small laceration to left cheek. Patient's been noncompliant with his Depakote and Keppra 1 month. Complains of a 5/5 global headache without aggravating or alleviating factors. Denies neck pain. No nausea Denies tongue laceration or urinary incontinence. Patient states he has received tetanus within 10 years - Related Data Previous Rx's Medication Instructions Recorded Last Taken Type Amoxicillin/Potassium Clav 1 each PO BID #14 tablet 01/23/18 Unknown Rx [Augmentin 875-125 Tablet] Divalproex [Dwain Diez] 250 mg PO QAM #30 tablet 01/23/18 Unknown Rx Divalproex [Dwain Diez] 500 mg PO QHS #30 tablet 01/23/18 Unknown Rx Loratadine/Pseudoephedrine 1 tab PO Q12H #20 tablet 01/23/18 Unknown Rx [Claritin-D 12HR] levETIRAcetam [Keppra] 500 mg PO BID #60 tablet 01/23/18 Unknown Rx Allergies Allergy/AdvReac Type Severity Reaction Status Date / Time No Known Allergies Allergy Verified 08/12/17 05:01 ED Review of Systems ROS: Stated complaint: SEIZURE Other details as noted in HPI Comment: All other systems reviewed and negative ED Past Medical Hx - Past Medical History Hx Congestive Heart Failure: No Hx Diabetes: No Hx Seizures: Yes Hx Asthma: No Hx COPD: No - Surgical History Past Surgical History?: No - Social History Smoking Status: Unknown if ever smoked Substance Use Type: None - Medications Home Medications: Home Medications Medication Instructions Recorded Confirmed Last Taken Type Amoxicillin/Potassium Clav 1 each PO BID #14 tablet 01/23/18 Unknown Rx [Augmentin 875-125 Tablet] Divalproex [Dwain Diez] 250 mg PO QAM #30 tablet 01/23/18 Unknown Rx Divalproex [Dwain Diez] 500 mg PO QHS #30 tablet 01/23/18 Unknown Rx Loratadine/Pseudoephedrine 1 tab PO Q12H #20 tablet 01/23/18 Unknown Rx [Claritin-D 12HR] levETIRAcetam [Keppra] 500 mg PO BID #60 tablet 01/23/18 Unknown Rx ED Physical Exam - General Limitations: No Limitations - Other Other exam information: General: No limitations, patient is alert in no acute distress Head exam: Atraumatic, normocephalic Eyes exam: Normal appearance ENT: Moist mucous membrane, normal oropharynx Neck exam: Normal inspection, no midline tenderness, c-collar Respiratory exam: Clear to auscultation bilateral, no wheezes, rales, crackles Cardiovascular: Normal rate and rhythm, normal heart sounds Abdomen: Soft, nondistended, and nontender, with normal bowel sounds, no rebound, or guarding Extremity: Full range of motion normal inspection no deformity Back: Normal Inspection, full range of motion, no tenderness Neurologic: Alert, oriented x3, cranial nerves intact, no motor or sensory deficit Psychiatric: normal affect, normal mood Skin: Left cheek 1 cm laceration with minimal bleeding ED Course Vital Signs 01/23/18 01/23/18 01/23/18 08:46 09:00 09:01 Temperature 99.7 F H Pulse Rate 106 H 102 H 104 H Respiratory 20 18 17 Rate Blood Pressure 140/96 Blood Pressure 126/86 [Left] O2 Sat by Pulse 96 95 95 Oximetry 01/23/18 01/23/18 01/23/18 09:15 09:31 09:45 Temperature Pulse Rate 106 H 102 H 102 H Respiratory 18 18 18 Rate Blood Pressure Blood Pressure [Left] O2 Sat by Pulse 97 96 93 Oximetry 01/23/18 01/23/18 01/23/18 10:35 10:40 10:45 Temperature Pulse Rate 86 16 L 84 Respiratory 18 16 16 Rate Blood Pressure 126/87 119/78 Blood Pressure 126/87 [Left] O2 Sat by Pulse 98 98 100 Oximetry 01/23/18 01/23/18 11:00 11:15 Temperature Pulse Rate 80 86 Respiratory 17 18 Rate Blood Pressure 129/78 129/83 Blood Pressure [Left] O2 Sat by Pulse 97 Oximetry - Laceration /Wound Repair Left Cheek Wound Location: face Wound Length (cm): 1 Wound's Depth, Shape: linear Irrigated w/ Saline (ccs): 200 Betadine Prep?: Yes Wound Repaired With: Dermabond Sterile Dressing Applied?: No ED Medical Decision Making - Lab Data Result diagrams: 01/23/18 09:50 01/23/18 09:50 Lab Results 01/23/18 01/23/18 01/23/18 Range/Units 09:50 09:50 09:52 WBC 4.0 L (4.5-11.0) K/mm3 RBC 4.86 (3.65-5.03) M/mm3 Hgb 13.2 (11.8-15.2) gm/dl Hct 42.2 (35.5-45.6) % MCV 87 (84-94) fl MCH 27 L (28-32) pg MCHC 31 L (32-34) % RDW 14.3 (13.2-15.2) % Plt Count 155 (140-440) K/mm3 Sodium 141 (137-145) mmol/L Potassium 4.2 (3.6-5.0) mmol/L Chloride 100.7 (98-107) mmol/L Carbon Dioxide 20 L (22-30) mmol/L Anion Gap 25 mmol/L BUN 15 (9-20) mg/dL Creatinine 1.0 (0.8-1.5) mg/dL Estimated GFR > 60 ml/min BUN/Creatinine Ratio 15 % Glucose 136 H (75-100) mg/dL Calcium 8.7 (8.4-10.2) mg/dL Magnesium 1.90 (1.7-2.3) mg/dL Valproic Acid < 2.8 L (50-100) ug/mL - Radiology Data Radiology results: report reviewed CT head: No sinusitis since May 2017, severe status greatest involvement in the left maxillary sinus CT cervical spine without contrast: Chronic degenerative changes, no acute findings - Medical Decision Making Patient admits to medication noncompliance that this is likely the cause of his seizure. He received IV Keppra and by mouth Depakote in the ED without any further seizure activity. Pain is controlled. Patient be discharged home to follow up with neurology in a refill of medications will be prescribed - Differential Diagnosis breakthrough seizure, medication noncompliance, electolyte abnl, Critical Care Time: No Critical care attestation.: If time is entered above; I have spent that time in minutes in the direct care of this critically ill patient, excluding procedure time. ED Disposition Clinical Impression: Seizure secondary to subtherapeutic anticonvulsant medication, Noncompliance, Sinusitis, Face lacerations Disposition: DC-01 TO HOME OR SELFCARE Is pt being admited?: No Does the pt Need Aspirin: No Condition: Stable Instructions: Epilepsy (ED), Sinusitis (ED), Skin Adhesive Care (ED) Additional Instructions: Follow-up with the primary care clinic in a neurologist for further management of your seizures. I prescribed a refill in your current seizure medication. Antibiotics were prescribed for sinusitis that was seen on CAT scan. ENT referral was also provided for further management of your sinus infection. Prescriptions: Amoxicillin/Potassium Clav [Augmentin 875-125 Tablet] 1 each PO BID #14 tablet Divalproex [Dwain Diez] 500 mg PO QHS #[address] [Dwain Diez] 250 mg PO QAM #30 tablet levETIRAcetam [Keppra] 500 mg PO BID #60 tablet Loratadine/Pseudoephedrine [Claritin-D 12HR] 1 tab PO Q12H #20 tablet Referrals: [facility] [Provider Group] - 3-5 Days (Primary care clinic) CELIA AZUL MD [Staff Physician] - 3-5 Days (ENT) SAIRA KNAPP MD [Staff Physician] - 3-5 Days (Neurologist) Time of Disposition: 12:19
[2018-01-23 09:56] LABS: Hematocrit 42.2 % (35.5-45.6); Hemoglobin 13.2 gm/dl (11.8-15.2); Mean Corpuscular HGB Conc 31 % (32-34); Mean Corpuscular Hemoglobin 27 pg (28-32); Mean Corpuscular Volume 87 fl (84-94); Platelet Count 155 K/mm3 (140-440); Red Blood Count 4.86 M/mm3 (3.65-5.03); Red Cell Distribution Width 14.3 % (13.2-15.2)
[2018-01-23 10:14] LABS: BUN/Creatinine Ratio 15; Blood Urea Nitrogen 15 mg/dL (9-20); Calcium 8.7 mg/dL (8.4-10.2); Hemolysis Index 10
--- NOTE | 2018-01-23 11:01 | Cat Scan Report ---
CT HEAD WITHOUT CONTRAST INDICATION: Seizure, fall. COMPARISON: 06/05/2017. FINDINGS: Noncontrast head CT demonstrates stable ventricles and sulci, within normal limits. No acute infarct, hemorrhage, mass effect or midline shift. No abnormal extra axial fluid collections. Normal posterior fossa with preserved basilar cisterns and normal imaged eye globes. Imaged left maxillary sinus now completely opacified. Mild bilateral ethmoid, sphenoid and right maxillary sinus mucosal thickening also now noted in this patient with stable hypoplastic frontal sinuses. Clear mastoid air cells. Normal calvarium and scalp. CONCLUSION: New sinusitis since May 2017 with severe/greatest involvement of the left maxillary sinus without acute intracranial CT abnormality, as described above. Please correlate. Thank you for the opportunity to participate in this patient's care.
--- NOTE | 2018-01-23 11:18 | Cat Scan Report ---
CT CERVICAL SPINE WITHOUT CONTRAST INDICATION: Seizure, fall. COMPARISON: None similar. FINDINGS: Noncontrast axial, sagittal and coronal CT reconstructions through the cervical spine demonstrate normal imaged posterior fossa and clear mastoid air cells. Intact craniocervical articulation, dens, predental space, prevertebral soft tissues, airway and the posterior elements. Normal vertebral body stature, alignment and disc heights. Slight C6 degenerative spurring. Normal imaged thyroid and lung apices. Probable slight tracheal secretions on the left, axial image 7, series 3. On the obtained axial images: C2-C3 demonstrates slight right uncovertebral spurring. C3-C4 demonstrates mild right uncovertebral spurring and mild right neural foraminal narrowing. CONCLUSION: No acute cervical spine CT abnormality with few degenerative changes, as above. Thank you for the opportunity to participate in this patient's care.
[2018-01-23] MEDS ORDERED: NACL 0.9% IR ONE (12:11)
[2018-01-23 13:11] VITALS: BP 153/95
== END 2018-01-23 13:11 | disposition home or self-care (01) ==
LOC: ED 08:46
DX: R56.9 Unspecified convulsions (principal); S01.412A Laceration without foreign body of left cheek and temporomandibular area, initial encounter; J32.9 Chronic sinusitis, unspecified; X58.XXXA Exposure to other specified factors, initial encounter; Y93.89 Activity, other specified; Y99.8 Other external cause status; Y92.480 Sidewalk as the place of occurrence of the external cause
CPT/HCPCS: 12011; 36415; 70450; 72125; 80048; 80164; 83735; 85027; 96374; 96375; 99284; J1885; J1953

== ENCOUNTER 2018-03-08 13:48 | Emergency (ER) | payer SELFPAY ==
[2018-03-08] MEDS ORDERED: KEPPRA 1,000 MG/NS 0.75% 100ML 1,000 MG/100 ML BAG IV ONE ×2 (14:29→15:31)
[2018-03-08] MEDS ORDERED: NACL 0.9% 1000 ML 1,000 ML IV ONE (15:31)
[2018-03-08] MEDS ORDERED: ATIVAN IV ONE (15:31)
[2018-03-08] MEDS ORDERED: XYLOCAINE 1%/ EPI 1:100,000 INFILTRATI ONE (15:58)
[2018-03-08 16:06] LABS: Hematocrit 41.3 % (35.5-45.6); Hemoglobin 13.6 gm/dl (11.8-15.2); Mean Corpuscular HGB Conc 33 % (32-34); Mean Corpuscular Hemoglobin 28 pg (28-32); Mean Corpuscular Volume 84 fl (84-94); Platelet Count 169 K/mm3 (140-440); Red Blood Count 4.89 M/mm3 (3.65-5.03); Red Cell Distribution Width 14.1 % (13.2-15.2)
[2018-03-08 16:07] LABS: Basophils % (Auto) 0.4 % (0.0-1.8); Eosinophils % (Auto) 0.9 % (0.0-4.3); Lymphocytes # (Auto) 0.9 K/mm3 (1.2-5.4); Lymphocytes % (Auto) 19.5 % (13.4-35.0); Monocytes # (Auto) 0.3 K/mm3 (0.0-0.8); Monocytes % (Auto) 7.6 % (0.0-7.3)
[2018-03-08 16:10] LABS: Alanine Aminotransferase 17 units/L (7-56); Albumin 4.2 g/dL (3.9-5); BUN/Creatinine Ratio 11; Blood Urea Nitrogen 11 mg/dL (9-20); Calcium 8.9 mg/dL (8.4-10.2); Hemolysis Index 7
[2018-03-08] MEDS ORDERED: HYDROGEN PEROXIDE ONE ×2 (16:11→16:21)
--- NOTE | 2018-03-08 16:47 | Emergency Department Report ---
ED Seizure HPI - General Chief Complaint: Seizure Stated Complaint: SZ/FALL Time Seen by Provider: 03/08/18 15:02 Source: patient, EMS Mode of arrival: Stretcher Limitations: No Limitations - History of Present Illness Initial Comments: Patient sustained head injury while boxing many years ago. Since then he's been having seizures. He said he takes Depakote 250 mg in the morning of 500 mg at night. He also takes Keppra 1500 mg twice a day. Patient had seizure today. The seizure wasn't witnessed. He fell and sustained in the left forehead laceration while having a seizure today. Patient was brought into the emergency room by EMS after he had the seizures. I told me that for the past 2 months he has not been taking his seizure medication for financial reasons. He ran out of his seizure medications 2 months ago. MD Complaint: seizure -: Sudden Description of Episode: loss of consciousness, tonic-clonic movement Witnessed:: No Trauma: Yes (Left forehead laceration.) Seizure History: known seizure disorder, history of non-compliance Place: street/outdoors Possible Precipitating Event: head injury Associated Symptoms: denies other symptoms Treatments Prior to Arrival: none - Related Data Previous Rx's Medication Instructions Recorded Last Taken Type Amoxicillin/Potassium Clav 1 each PO BID #14 tablet 01/23/18 Unknown Rx [Augmentin 875-125 Tablet] Divalproex [Dwain Diez] 250 mg PO QAM #30 tablet 01/23/18 Unknown Rx Divalproex [Dwain Diez] 500 mg PO QHS #30 tablet 01/23/18 Unknown Rx Loratadine/Pseudoephedrine 1 tab PO Q12H #20 tablet 01/23/18 Unknown Rx [Claritin-D 12HR] levETIRAcetam [Keppra] 500 mg PO BID #60 tablet 01/23/18 Unknown Rx Acetaminophen with Codeine 1 each PO Q12HR PRN 5 Days #10 03/08/18 Unknown Rx [Tylenol with Codeine #3 Tablet] tablet Divalproex Sodium [Depakote] 250 mg PO BID #60 tablet. 03/08/18 Unknown Rx Mupirocin [Bactroban 2%] 1 applic TP TID #1 tube 03/08/18 Unknown Rx Sulfamethoxazole/Trimethoprim 1 each PO BID 10 Days #20 tablet 03/08/18 Unknown Rx [Bactrim DS TAB] levETIRAcetam [Keppra TAB] 1,000 mg PO BID 30 Days #60 tab 03/08/18 Unknown Rx Allergies Allergy/AdvReac Type Severity Reaction Status Date / Time No Known Allergies Allergy Verified 08/12/17 05:01 ED Review of Systems ROS: Stated complaint: SZ/FALL Other details as noted in HPI Comment: All other systems reviewed and negative Constitutional: denies: chills, fever Eyes: denies: eye pain, eye discharge ENT: denies: throat pain, dental pain Respiratory: denies: cough, shortness of breath Cardiovascular: denies: chest pain, palpitations Endocrine: no symptoms reported Gastrointestinal: denies: abdominal pain, nausea, vomiting, diarrhea Genitourinary: denies: urgency, dysuria Musculoskeletal: denies: back pain, joint swelling Skin: lesions, other (facial abrasions) Neurological: denies: headache, weakness, numbness Psychiatric: denies: anxiety, depression, auditory hallucinations Hematological/Lymphatic: denies: easy bleeding, easy bruising ED Past Medical Hx - Past Medical History Previous Medical History?: Yes Hx Congestive Heart Failure: No Hx Diabetes: No Hx Seizures: Yes Hx Asthma: No Hx COPD: No - Social History Smoking Status: Unknown if ever smoked - Medications Home Medications: Home Medications Medication Instructions Recorded Confirmed Last Taken Type Amoxicillin/Potassium Clav 1 each PO BID #14 tablet 01/23/18 Unknown Rx [Augmentin 875-125 Tablet] Divalproex Dr Althea Diez] 250 mg PO QAM #30 tablet 01/23/[address] Althea Diez] 500 mg PO QHS #30 tablet 01/23/18 Unknown Rx Loratadine/Pseudoephedrine 1 tab PO Q12H #20 tablet 01/23/18 Unknown Rx [Claritin-D 12HR] levETIRAcetam [Keppra] 500 mg PO BID #60 tablet 01/23/18 Unknown Rx Acetaminophen with Codeine 1 each PO Q12HR PRN 5 Days #10 03/08/18 Unknown Rx [Tylenol with Codeine #3 Tablet] tablet Divalproex Sodium [Depakote] 250 mg PO BID #60 tablet. 03/08/18 Unknown Rx Mupirocin [Bactroban 2%] 1 applic TP TID #1 tube 03/08/18 Unknown Rx Sulfamethoxazole/Trimethoprim 1 each PO BID 10 Days #20 tablet 03/08/18 Unknown Rx [Bactrim DS TAB] levETIRAcetam [Keppra TAB] 1,000 mg PO BID 30 Days #60 tab 03/08/18 Unknown Rx ED Physical Exam - General Limitations: No Limitations General appearance: alert, in no apparent distress - Head Head exam: Present: other (Left forehead laceration) - Eye Eye exam: Present: normal appearance, PERRL, EOMI Pupils: Present: normal accommodation - ENT ENT exam: Present: normal exam, normal orophraynx, mucous membranes moist - Neck Neck exam: Present: normal inspection, full ROM. Absent: tenderness - Respiratory Respiratory exam: Present: normal lung sounds bilaterally - Cardiovascular Cardiovascular Exam: Present: regular rate, normal rhythm, normal heart sounds. Absent: tachycardia - GI/Abdominal GI/Abdominal exam: Present: soft, normal bowel sounds. Absent: tenderness, guarding, rebound - Extremities Exam Extremities exam: Present: normal inspection, full ROM, normal capillary refill - Back Exam Back exam: Present: normal inspection, full ROM - Neurological Exam Neurological exam: Present: alert, oriented X3, CN II-XII intact - Psychiatric Psychiatric exam: Present: normal affect, normal mood - Skin Skin exam: Present: warm, dry, normal color, abrasion, other (Left forehead 5cm laceration.) ED Course Vital Signs 03/08/18 13:50 Temperature 98.4 F Pulse Rate 112 H Respiratory 16 Rate Blood Pressure 129/87 O2 Sat by Pulse 100 Oximetry - Reevaluation(s) Reevaluation #1: 03/08/18 18:38 I consulted the tele neurologist distribution coordinator Dr Ahumada. He recommend discharging patient home with Depakote 250mg PO BID and Keppra 1000mg PO BID. He also wants patient loaded with Keppra 1000mg IV and Depakote 500 mg x 1 prior to discharge. - Laceration /Wound Repair Left Face Wound Location: face Wound Length (cm): 5 Wound's Depth, Shape: flap, contused tissue Wound Explored: no foreign body removed Irrigated w/ Saline (ccs): 200 Betadine Prep?: Yes Anesthesia: Lidocaine w/ Epi Volume Anesthetic (ccs): 4 Wound Debrided: None Wound Repaired With: sutures Suture Size/Type: 5:0, nylon Number of Sutures: 8 Layer Closure?: No Sterile Dressing Applied?: Yes ED Medical Decision Making - Lab Data Result diagrams: 03/08/18 15:32 03/08/18 15:37 - EKG Data -: EKG Interpreted by Me EKG shows normal: sinus rhythm Rate: normal (92) - EKG Data When compared to previous EKG there are: previous EKG unavailable Interpretation: nonspecific ST-T wave vicente, [facility] - Radiology Data Radiology results: report reviewed, image reviewed Critical Care Time: Yes Critical care time in (mins) excluding proc time.: 45 Critical care attestation.: If time is entered above; I have spent that time in minutes in the direct care of this critically ill patient, excluding procedure time. ED Disposition Clinical Impression: Recurrent seizures, Seizure disorder Forehead laceration Qualifiers: Encounter type: initial encounter Qualified Code(s): S01.81XA - Laceration without foreign body of other part of head, initial encounter Fall Qualifiers: Encounter type: initial encounter Qualified Code(s): W19.XXXA - Unspecified fall, initial encounter Disposition: DC- TO HOME OR SELFCARE Is pt being admited?: No Does the pt Need Aspirin: No Condition: Stable Instructions: Recurrent Seizures Adult (ED), Suture Care (ED), Laceration (ED) Additional Instructions: Please follow up with the Neurologist Dr Ahumada tomorrow morning. Please take your medication as prescribed. Return to the ED if your condition worsens. Prescriptions: Acetaminophen with Codeine [Tylenol with Codeine #3 Tablet] 1 each PO Q12HR PRN 5 Days #10 tablet PRN Reason: Pain Divalproex Sodium [Depakote] 250 mg PO BID #60 tablet. levETIRAcetam [Keppra TAB] 1,000 mg PO BID 30 Days #60 tab Mupirocin [Bactroban 2%] 1 applic TP TID #1 tube Sulfamethoxazole/Trimethoprim [Bactrim DS TAB] 1 each PO BID 10 Days #20 tablet Referrals: PRIMARY CARE, [Primary Care Provider] - 3-5 Days Time of Disposition: 18:47
--- NOTE | 2018-03-08 17:06 | Cat Scan Report ---
FINAL REPORT EXAM: CT HEAD/BRAIN WO CON HISTORY: Seizure COMPARISON: CT of the head performed on 01/23/2018 TECHNIQUE: Multiple contiguous axial images were obtained from the skullbase to the vertex without administration of IV contrast. FINDINGS: Brain volume is normal for age. No hemorrhage, mass, mass effect, or midline shift. Ventricles are not enlarged. Normal basal cisterns. No pathologic extra-axial fluid collection. No evidence of acute infarct. No skull fracture. Mastoid air cells are clear. Polyp within the left maxillary sinus. Bilateral orbits are grossly intact. There is stranding of the soft tissues of the left frontal scalp and anterior to the left orbit. IMPRESSION: No acute intracranial abnormality.
[2018-03-08] MEDS ORDERED: NACL 0.9% 500 ML IR ONE (17:07)
--- NOTE | 2018-03-08 17:09 | Cat Scan Report ---
FINAL REPORT EXAM: CT CERVICAL SPINE WO CON HISTORY: Seizure COMPARISON: CT of the cervical spine performed on 01/23/2018 TECHNIQUE: Multiple contiguous axial images were obtained through the cervical spine without administration of IV contrast. Reformatted sagittal and coronal images were available for review. FINDINGS: There is no acute fracture or dislocation. The vertebral body heights are maintained. The paravertebral soft tissues are normal. The airway is patent. C1-C2: Normal. C2-C3: Mild intervertebral disc space narrowing with uncovertebral osteophyte formation. No central or foraminal stenosis. C3-C4: Mild intervertebral disc space narrowing with uncovertebral osteophyte formation. No central or foraminal stenosis. C4-C5: Mild intervertebral disc space narrowing with uncovertebral osteophyte formation. No central or foraminal stenosis. C5-C6: Mild intervertebral disc space narrowing with anterior and uncovertebral osteophyte formation. Broad-based disc bulge. No central foraminal stenosis. C6-C7: Mild intervertebral disc space narrowing with uncovertebral osteophyte formation. No central foraminal stenosis. C7-T1: Mild intervertebral disc space narrowing. No central or foraminal stenosis. IMPRESSION: Mild degenerative changes of the cervical spine without acute fracture or dislocation.
[2018-03-08] MEDS ORDERED: ceFAZolin 2 GM in NACL 0.9% 100 ML IV ONE (17:47)
[2018-03-08] MEDS ORDERED: D50W (25GM) Syringe IV ONE (18:03)
[2018-03-08] MEDS ORDERED: TRIPLE ANTIBIOTIC TP ONE (18:12)
[2018-03-08] MEDS ORDERED: BACTROBAN 2% TP ONE (18:33)
[2018-03-08] MEDS ORDERED: ANCEF/STERILE WATER 2 GM/20 ML 2 GM/20 ML SYRINGE IV ONE (19:00)
[2018-03-08 20:57] VITALS: BP 118/73
== END 2018-03-08 20:55 | disposition home or self-care (01) ==
LOC: ED 13:48
DX: G40.909 Epilepsy, unspecified, not intractable, without status epilepticus (principal); S01.81XA Laceration without foreign body of other part of head, initial encounter; W19.XXXA Unspecified fall, initial encounter; Y93.89 Activity, other specified; Y99.8 Other external cause status; Y92.410 Unspecified street and highway as the place of occurrence of the external cause
CPT/HCPCS: 12013; 36415; 70450; 72125; 80053; 80164; 80185; 85025; 93005; 93010; 96361; 96374; 96375; 96376; 99291; G0480; J0690; J1953; J2060; J7030; 80320; A6250

== ENCOUNTER 2019-06-11 07:31 | Emergency (ER) | payer OTHER ==
[2019-06-11] MEDS ORDERED: KEPPRA 1,000 MG/NS 0.75% 100ML 1,000 MG/100 ML BAG IV ONE (07:56)
[2019-06-11 08:11] LABS: Hematocrit 43.2 % (35.5-45.6); Hemoglobin 13.8 gm/dl (11.8-15.2); Mean Corpuscular HGB Conc 32 % (32-34); Mean Corpuscular Volume 86 fl (84-94); Platelet Count 175 K/mm3 (140-440); Red Blood Count 5.03 M/mm3 (3.65-5.03); Red Cell Distribution Width 13.6 % (13.2-15.2)
--- NOTE | 2019-06-11 08:16 | Emergency Department Report ---
ED Seizure HPI - General Chief Complaint: Seizure Stated Complaint: SEIZURE Time Seen by Provider: 06/11/19 08:11 Source: patient, EMS Mode of arrival: Stretcher Limitations: No Limitations - History of Present Illness Initial Comments: Patient is a 49-year-old male that presents emergency room with complaints of seizure. Patient states he missed seizure medications for 3 days. Patient states he ran out. Patient states he has not followed up with a neurologist or primary care in a while. Patient complains of laceration to the chin as well as a laceration to the anterior aspect of his lower lip. Patient states the pain is a 5 out of 10. He states the pain is better with rest and worse with talking. Patient states his chin continues to bleed even with direct pressure. MD Complaint: seizure -: Sudden Description of Episode: loss of consciousness -: second(s) Witnessed:: Yes Trauma: Yes Seizure History: known seizure disorder, history of withdrawal se, history of non-compliance Place: home Possible Precipitating Event: head injury, other Associated Symptoms: other. denies: chest pain, confusion, cough, diaphoresis, fever/chills, loss of appetite, malaise, rash, shortness of breath, syncope, weakness Treatments Prior to Arrival: none - Related Data Previous Rx's Medication Instructions Recorded Last Taken Type Amoxicillin/Potassium Clav 1 each PO BID #14 tablet 01/23/18 Unknown Rx [Augmentin 875-125 Tablet] Divalproex Dr Althea Diez] 250 mg PO QAM #30 tablet 01/23/[address] Althea Diez] 500 mg PO QHS #30 tablet 01/23/18 Unknown Rx Loratadine/Pseudoephedrine 1 tab PO Q12H #20 tablet 01/23/18 Unknown Rx [Claritin-D 12HR] levETIRAcetam [Keppra] 500 mg PO BID #60 tablet 01/23/18 Unknown Rx Acetaminophen with Codeine 1 each PO Q12HR PRN 5 Days #10 03/08/18 Unknown Rx [Tylenol with Codeine #3 Tablet] tablet Mupirocin [Bactroban 2%] 1 applic TP TID #1 tube 03/08/18 Unknown Rx Sulfamethoxazole/Trimethoprim 1 each PO BID 10 Days #20 tablet 03/08/18 Unknown Rx [Bactrim DS TAB] Divalproex Sodium [Depakote] 250 mg PO BID #60 tablet. 10/20/18 Unknown Rx levETIRAcetam [Keppra TAB] 1,000 mg PO BID 30 Days #60 tab 10/20/18 Unknown Rx Allergies Allergy/AdvReac Type Severity Reaction Status Date / Time No Known Allergies Allergy Verified 08/12/17 05:01 ED Review of Systems ROS: Stated complaint: SEIZURE Other details as noted in HPI Constitutional: denies: chills, fever Eyes: denies: eye pain, eye discharge, vision change ENT: denies: ear pain, throat pain Respiratory: denies: cough, shortness of breath, wheezing Cardiovascular: denies: chest pain, palpitations Endocrine: no symptoms reported Gastrointestinal: denies: abdominal pain, nausea, diarrhea Genitourinary: denies: urgency, dysuria Musculoskeletal: denies: back pain, joint swelling, arthralgia Skin: denies: rash, lesions Neurological: denies: headache, weakness, paresthesias Psychiatric: denies: anxiety, depression Hematological/Lymphatic: denies: easy bleeding, easy bruising ED Past Medical Hx - Past Medical History Previous Medical History?: Yes Hx Congestive Heart Failure: No Hx Diabetes: No Hx Seizures: Yes Hx Asthma: No Hx COPD: No - Surgical History Past Surgical History?: No - Family History Family history: no significant - Social History Smoking Status: Never Smoker Substance Use Type: Alcohol - Medications Home Medications: Home Medications Medication Instructions Recorded Confirmed Last Taken Type Amoxicillin/Potassium Clav 1 each PO BID #14 tablet 01/23/18 Unknown Rx [Augmentin 875-125 Tablet] Divalproex Dr Althea Diez] 250 mg PO QAM #30 tablet 01/23/[address] Althea Diez] 500 mg PO QHS #30 tablet 01/23/18 Unknown Rx Loratadine/Pseudoephedrine 1 tab PO Q12H #20 tablet 01/23/18 Unknown Rx [Claritin-D 12HR] levETIRAcetam [Keppra] 500 mg PO BID #60 tablet 01/23/18 Unknown Rx Acetaminophen with Codeine 1 each PO Q12HR PRN 5 Days #10 03/08/18 Unknown Rx [Tylenol with Codeine #3 Tablet] tablet Mupirocin [Bactroban 2%] 1 applic TP TID #1 tube 03/08/18 Unknown Rx Sulfamethoxazole/Trimethoprim 1 each PO BID 10 Days #20 tablet 03/08/18 Unknown Rx [Bactrim DS TAB] Divalproex Sodium [Depakote] 250 mg PO BID #60 tablet.dr 10/20/18 Unknown Rx levETIRAcetam [Keppra TAB] 1,000 mg PO BID 30 Days #60 tab 10/20/18 Unknown Rx ED Physical Exam - General Limitations: No Limitations General appearance: alert, in no apparent distress - Head Head exam: Present: atraumatic, normocephalic - Eye Eye exam: Present: normal appearance - ENT ENT exam: Present: mucous membranes moist, other (through and through chin laceration noted. Laceration noted at the junction of the lip and gumline khanh ears to tunnel back into the oropharynx.) - Neck Neck exam: Present: normal inspection - Respiratory Respiratory exam: Present: normal lung sounds bilaterally. Absent: respiratory distress - Cardiovascular Cardiovascular Exam: Present: regular rate, normal rhythm. Absent: systolic murmur, diastolic murmur, rubs, gallop - GI/Abdominal GI/Abdominal exam: Present: soft, normal bowel sounds - Rectal Rectal exam: Present: deferred - Extremities Exam Extremities exam: Present: normal inspection - Back Exam Back exam: Present: normal inspection - Neurological Exam Neurological exam: Present: alert, oriented X3, CN II-XII intact. Absent: altered - Psychiatric Psychiatric exam: Present: normal affect, normal mood - Skin Skin exam: Present: warm, dry, intact, normal color. Absent: rash ED Course Vital Signs 06/11/19 06/11/19 06/11/19 07:46 07:55 08:00 Temperature 98.5 F Pulse Rate 109 H 109 H 118 H Respiratory 19 11 L 17 Rate Blood Pressure 146/92 139/88 O2 Sat by Pulse 95 94 95 Oximetry 06/11/19 06/11/19 06/11/19 08:29 08:30 09:00 Temperature Pulse Rate 103 H 96 H Respiratory 17 19 19 Rate Blood Pressure 122/85 126/92 O2 Sat by Pulse 95 Oximetry 06/11/19 06/11/19 06/11/19 09:30 10:00 10:53 Temperature Pulse Rate 101 H 90 Respiratory 19 16 Rate Blood Pressure 141/97 130/89 130/89 O2 Sat by Pulse 94 99 Oximetry 06/11/19 06/11/19 06/11/19 11:01 11:31 12:00 Temperature Pulse Rate 95 H 97 H 92 H Respiratory 18 16 16 Rate Blood Pressure 145/96 145/96 143/101 O2 Sat by Pulse 98 97 99 Oximetry 06/11/19 06/11/19 12:31 13:00 Temperature Pulse Rate 96 H Respiratory 20 Rate Blood Pressure 143/101 143/99 O2 Sat by Pulse 96 Oximetry - Reevaluation(s) Reevaluation #1: I discussed all results with patient. I discussed plan of care and transfer patient. 06/11/19 11:48 Reevaluation #2: I discussed transfer with patient. Patient states he has been continues to will go by POV to [place]. Patient has received a tetanus shot. Patient has been given a round of antibiotics. Patient voiced understanding of results and plan of care. Patient refused to be transferred via EMS. Patient given the risk. Patient voiced understanding of risks. Patient is going to leave the hospital AGAINST MEDICAL ADVICE. Patient signed AMA. 06/11/19 12:43 - Consultations Consultation #1: Sloan steen, I discussed case with transfer center. Transfer center states they're going to contact the trauma attending. 06/11/19 11:48 ED Medical Decision Making - Lab Data Result diagrams: 06/11/19 07:56 06/11/19 07:56 - Radiology Data CT FACIAL BONES WITHOUT CONTRAST INDICATION : fall. facial trauma and head injury. sz. TECHNIQUE: Axial imaging performed through the face with reconstructed images also reviewed. Sagittal and coronal reformatted images. All CT scans at this location are performed using CT dose reduction for ALARA by means of automated exposure control. COMPARISON: None FINDINGS: The facial bones are intact. Paranasal sinuses are well-aerated. Skull base and visualized brain parenchyma are within normal limits. Orbital cavities and contents appear normal. IMPRESSION: No acute abnormality. CT CERVICAL SPINE WITHOUT CONTRAST INDICATION: fall. facial trauma and head injury. sz. TECHNIQUE: Axial imaging performed through the cervical spine without the use o f contrast. Sagittal and coronal reconstructed images were also reviewed. All CT scans at this location are performed using CT dose reduction for ALARA by means of automated exposure control. COMPARISON: None FINDINGS: Alignment: Spinal alignment is normal. Bones: There is no acute osseous abnormality. Mild multilevel discogenic DJD is present. Soft tissues: No acute or significant incidental soft tissue abnormality. IMPRESSION: No acute abnormality. CT HEAD WITHOUT CONTRAST INDICATION / CLINICAL INFORMATION: Seizure, headache, facial trauma. TECHNIQUE: Axial imaging performed from the skull apex through the skull base without the use of contrast. Sagittal and coronal reformatted images. All CT scans at this location are performed using CT dose reduction for ALARA by means of automated exposure control. COMPARISON: 03/08/2018 FINDINGS: CEREBRAL PARENCHYMA: No significant abnormality. No acute territorial infarct. HEMORRHAGE: None. EXTRA-AXIAL SPACES: Normal in size and morphology for the patient's age. VENTRICULAR SYSTEM: Normal in size and morphology for the patient's age. MIDLINE SHIFT OR HERNIATION: None. CEREBELLUM / BRAINSTEM: No significant abnormality. CALVARIUM: No significant abnormality. ORBITS: Normal as visualized. PARANASAL SINUSES / MASTOID AIR CELLS: Normal as visualized. SOFT TISSUES of HEAD: No significant abnormality. ADDITIONAL FINDINGS: None. IMPRESSION: No acute intracranial abnormality. - Medical Decision Making Patient is a 49-year-old male that presents emergency room status post seizure. Patient noncompliant with medication. Patient alert and oriented upon arrival. Patient sustained a chin laceration which is through and through and is tunn eling towards the base of the tongue. Patient had CT which is negative. Patient had a cervical spine CT which is negative. Patient had a facial bone CT which is negative. Patient was to be transferred to [place] for further evaluation and possible surgical correction of the floor the mouth laceration Via EMS but the patient refused and signed out AMA. Patient states he wants to go by POV because yesterday she needs to do and doesn't want EMS pill. Patient completely oriented the entire time in the ER. Patient appears to be of time on the body. Patient signed out AMA. Patient given discharge instructions. Patient instructed to return to ER if condition worsens. Patient instructed to go directly to [place] via POV. Patient instructed to follow up with primary care within 2-3 days. Patient instructed to take Tylenol when necessary for pain. Patient instructed to continue his seizure medications. - Differential Diagnosis seizure. Noncompliance. Oral laceration. Chin laceration. Critical Care Time: Yes Critical care attestation.: If time is entered above; I have spent that time in minutes in the direct care of this critically ill patient, excluding procedure time. Critical Care Time: 45 minutes ED Disposition Clinical Impression: Seizure secondary to subtherapeutic anticonvulsant medication, Noncompliance, Seizure Laceration of oral cavity Qualifiers: Encounter type: initial encounter Qualified Code(s): S01.512A - Laceration without foreign body of oral cavity, initial encounter Facial trauma Qualifiers: Encounter type: initial encounter Qualified Code(s): S09.93XA - Unspecified injury of face, initial encounter Laceration of floor of mouth with complication Qualifiers: Encounter type: initial encounter Qualified Code(s): S01.512A - Laceration without foreign body of oral cavity, initial encounter Disposition: DC-07 LEFT AGAINST MED ADVICE Is pt being admited?: No Does the pt Need Aspirin: No Condition: Critical Referrals: ZULLY SUAREZ MD [Primary Care Provider] - 3-5 Days Time of Disposition: 12:46
[2019-06-11 08:20] LABS: BUN/Creatinine Ratio 10; Blood Urea Nitrogen 9 mg/dL (9-20); Calcium 8.8 mg/dL (8.4-10.2); Hemolysis Index 5
--- NOTE | 2019-06-11 10:58 | Cat Scan Report ---
CT HEAD WITHOUT CONTRAST INDICATION / CLINICAL INFORMATION: Seizure, headache, facial trauma. TECHNIQUE: Axial imaging performed from the skull apex through the skull base without the use of cont rast. Sagittal and coronal reformatted images. All CT scans at this location are performed using CT dose reduction for ALARA by means of automated exposure control. COMPARISON: 03/08/2018 FINDINGS: CEREBRAL PARENCHYMA: No significant abnormality. No acute territorial infarct. HEMORRHAGE: None. EXTRA-AXIAL SPACES: Normal in size and morphology for the patient's age. VENTRICULAR SYSTEM: Normal in size and morphology for the patient's age. MIDLINE SHIFT OR HERNIATION: None. CEREBELLUM / BRAINSTEM: No significant abnormality. CALVARIUM: No significant abnormality. ORBITS: Normal as visualized. PARANASAL SINUSES / MASTOID AIR CELLS: Normal as visualized. SOFT TISSUES of HEAD: No significant abnormality. ADDITIONAL FINDINGS: None. IMPRESSION: No acute intracranial abnormality. Signer Name: Renard Patel Jr, MD Signed: 06/11/2019 10:53 AM Workstation Name: [id number]
--- NOTE | 2019-06-11 11:15 | Cat Scan Report ---
CT FACIAL BONES WITHOUT CONTRAST INDICATION : fall. facial trauma and head injury. sz. TECHNIQUE: Axial imaging performed through the face with reconstructed images also reviewed. Sagitta l and coronal reformatted images. All CT scans at this location are performed using CT dose reduction for ALARA by means of automated exposure control. COMPARISON: None FINDINGS: The facial bones are intact. Paranasal sinuses are well-aerated. Skull base and visualized brain parenchyma are within normal limits. Orbital cavities and contents appear normal. IMPRESSION: No acute abnormality. CT CERVICAL SPINE WITHOUT CONTRAST INDICATION: fall. facial trauma and head injury. sz. TECHNIQUE: Axial imaging performed through the cervical spine without the use of contrast. Sagittal and coronal reconstructed images were also reviewed. All CT scans at this location are performed us ing CT dose reduction for ALARA by means of automated exposure control. COMPARISON: None FINDINGS: Alignment: Spinal alignment is normal. Bones: There is no acute osseous abnormality. Mild multilevel discogenic DJD is present. Soft tissues: No acute or significant incidental soft tissue abnormality. IMPRESSION: No acute abnormality. Signer Name: Renard Patel Jr, MD Signed: 06/11/2019 11:10 AM Workstation Name: [id number]
[2019-06-11] MEDS ORDERED: CLEOCIN 600 MG/50 mL 600 MG/50 ML BAG IV ONE (11:50)
[2019-06-11] MEDS ORDERED: BOOSTRIX IM ONE (11:50)
[2019-06-11 13:09] VITALS: BP 143/99
== END 2019-06-11 13:40 | disposition left against medical advice (07) ==
LOC: ED 07:31
DX: S01.512A Laceration without foreign body of oral cavity, initial encounter (principal); S09.93XA Unspecified injury of face, initial encounter; R56.9 Unspecified convulsions; Z79.899 Other long term (current) drug therapy; X58.XXXA Exposure to other specified factors, initial encounter; Y93.89 Activity, other specified; Y92.89 Other specified places as the place of occurrence of the external cause; Y99.8 Other external cause status
CPT/HCPCS: 36415; 70450; 70486; 72125; 80048; 85027; 90471; 90715; 96365; 96367; 99284; J1953

== ENCOUNTER 2020-01-07 16:25 | Emergency (ER) | payer SELFPAY ==
[2020-01-07 16:46] VITALS: BP 115/82
[2020-01-07] MEDS ORDERED: levETIRAcetam 500 MG TAB PO ONE (16:48)
--- NOTE | 2020-01-07 16:52 | Emergency Department Report ---
HPI - General Chief Complaint: Seizure Time Seen by Provider: 01/07/20 16:41 - HPI HPI: Room 4 The patient is a 49-year-old male present with a chief complaint of seizure. Patient has a history of epilepsy and states he has been off of his Keppra and Depakote for a few days. Patient states his last seizure occurred a few months ago. Patient currently denies complaints and states he does not wish to stay for further evaluation as he has important matters to attend to ED Past Medical Hx - Past Medical History Previous Medical History?: Yes Hx Seizures: Yes - Surgical History Past Surgical History?: No - Family History Family history: no significant - Social History Smoking Status: Never Smoker Substance Use Type: None - Medications Home Medications: Home Medications Medication Instructions Recorded Confirmed Last Taken Type Amoxicillin/Potassium Clav 1 each PO BID #14 tablet 01/23/18 Unknown Rx [Augmentin 875-125 Tablet] Divalproex [Dwain Diez] 250 mg PO QAM #30 tablet 01/23/[address] Althea Diez] 500 mg PO QHS #30 tablet 01/23/18 Unknown Rx Loratadine/Pseudoephedrine 1 tab PO Q12H #20 tablet 01/23/18 Unknown Rx [Claritin-D 12HR] levETIRAcetam [Keppra] 500 mg PO BID #60 tablet 01/23/18 Unknown Rx Acetaminophen with Codeine 1 each PO Q12HR PRN 5 Days #10 03/08/18 Unknown Rx [Tylenol with Codeine #3 Tablet] tablet Mupirocin [Bactroban 2%] 1 applic TP TID #1 tube 03/08/18 Unknown Rx Sulfamethoxazole/Trimethoprim 1 each PO BID 10 Days #20 tablet 03/08/18 Unknown Rx [Bactrim DS TAB] Divalproex Sodium [Depakote] 250 mg PO BID #60 tablet.dr 10/20/18 Unknown Rx levETIRAcetam [Keppra TAB] 1,000 mg PO BID 30 Days #60 tab 10/20/18 Unknown Rx Divalproex ER [Depakote ER] 500 mg PO BID #60 tablet 07/20/19 Unknown Rx levETIRAcetam [Keppra TAB] 500 mg PO BID #60 tablet 07/20/19 Unknown Rx ED Review of Systems ROS: Stated complaint: SEIZURE Other details as noted in HPI Constitutional: no symptoms reported Physical Exam - Physical Exam Vital Signs: Vital Signs 01/07/20 16:39 Temperature 98.2 F Pulse Rate 110 H Respiratory 18 Rate Blood Pressure 115/82 Blood Pressure 115/82 [Right] O2 Sat by Pulse 96 Oximetry Physical Exam: GENERAL: The patient is well-developed well-nourished male sitting on stretcher not appear to be in acute distress. [] HEENT: Normocephalic. Atraumatic. Extraocular motions are intact. Patient has moist mucous membranes. NECK: Supple. Trachea midline CHEST/LUNGS: Clear to auscultation. There is no respiratory distress noted. HEART/CARDIOVASCULAR: Regular. There is no tachycardia. There is no gallop rub or murmur. ABDOMEN: Abdomen is soft, nontender. Patient has normal bowel sounds. There is no abdominal distention. SKIN: There is no rash. There is no edema. There is no diaphoresis. NEURO: The patient is awake, alert, and oriented. The patient is cooperative. The patient has no focal neurologic deficits. The patient has normal speech. Cranial nerves II through XII grossly intact MUSCULOSKELETAL: There is no evidence of acute injury. ED Course Vital Signs 01/07/20 16:39 Temperature 98.2 F Pulse Rate 110 H Respiratory 18 Rate Blood Pressure 115/82 Blood Pressure 115/82 [Right] O2 Sat by Pulse 96 Oximetry ED Medical Decision Making - Differential Diagnosis Epilepsy Critical care attestation.: If time is entered above; I have spent that time in minutes in the direct care of this critically ill patient, excluding procedure time. ED Disposition Clinical Impression: Seizure Disposition: - LEFT AGAINST MED ADVICE Is pt being admited?: No Does the pt Need Aspirin: No Condition: Undetermined Time of Disposition: 16:54 (Patient leaving AMA)
== END 2020-01-07 17:12 | disposition left against medical advice (07) ==
LOC: ED 16:25
DX: R56.9 Unspecified convulsions (principal); Z79.899 Other long term (current) drug therapy
CPT/HCPCS: 99283